=== PATIENT | male | born 1985 | race Caucasian/White ===

== ENCOUNTER 2023-10-22 22:55 | Emergency (ER) | payer MEDICARE, MEDICAID ==
[~2023-10-22] VITALS: Ht 175.3 cm; Wt 118.2 kg
[2023-10-22 22:57] VITALS: BP 159/86; PULSE 108; RESP 16; TEMP 98.9; O2SAT 97
== END 2023-10-23 00:12 ==
LOC: ER 22:57
DX: F20.9 Schizophrenia, unspecified (principal); V98.8XXA Other specified transport accidents, initial encounter; Y93.89 Activity, other specified; Y92.89 Other specified places as the place of occurrence of the external cause; Y99.8 Other external cause status
CPT/HCPCS: 99283